=== PATIENT | male | born 1955 | race Caucasian/White ===

== ENCOUNTER → 2017-11-17 | Outpatient (CLI) | payer BC ==
--- NOTE | 2017-11-17 13:59 | RAD ---
EXAM: Chest, 2 views. HISTORY: Cough. COMPARISON: 07/30/2015 FINDINGS: Frontal and lateral views of the chest are obtained. There is no infiltrate, effusion or pneumothorax. The heart is normal in size. IMPRESSION: No acute pulmonary finding. Electronically signed by: Le Gastelum MD (11/17/2017 1:55 PM) [place] [id number]
== END | disposition home or self-care (01) ==
LOC: PMG 11:16
PROVIDERS: ATTEND Physician Assistant Medical
DX: R05 Cough (principal); R06.02 Shortness of breath
CPT/HCPCS: 71046

== ENCOUNTER 2019-04-13 16:51 | Emergency (ER) | payer BC ==
[~2019-04-13] VITALS: Ht 188 cm; Wt 91.1 kg
[2019-04-13 16:52] VITALS: BP 135/75
[2019-04-13] MEDS ORDERED: IPRATRPIUM/ALBUTEROL 0.5/2.5MG 3 ML NEBU. NEB ONE (17:30)
[2019-04-13] MEDS ORDERED: BENZ100C PO (17:34)
[2019-04-13] MEDS ORDERED: DOXY100C14 PO (17:34)
[2019-04-13] MEDS ORDERED: ALBU2.5V8 IH (17:34)
[2019-04-13] MEDS ORDERED: PRED50TA PO (17:34)
--- NOTE | 2019-04-13 17:35 | PHYS DOC ---
Past History Past Medical History: Diabetes, Hypertension Past Surgical History: No Surgical History Alcohol Use: None Drug Use: None Adult General Chief Complaint Chief Complaint: COUGH HPI HPI 63-year-old male presenting to the emergency department today with a cough. He has had an upper respiratory tract infection and a head cold for about 5 days. Today he was coughing consistently and had an episode of posttussis emesis. No hematemesis. He denies any fevers or chills. He denies any pain. Location lungs. Without alleviating factors. Review of systems is negative for chest pain headache difficulty breathing abdominal pain fevers or chills. All other review of systems negative. ED course: 63-year-old male presenting with sharp today with cough. He was given a nebulizer here in the emergency room along with a chest x-ray being taken. He is afebrile here with normal vital signs. He feels better after nebulizer. Chest x-ray shows infiltrate. We will give the patient prednisone and doxycycline Tessalon Perles and a nebulizer to go home with. Return precautions given. Current Medications Current Medications Current Medications Medications (Trade) Dose Ordered Sig/Jakob Start Time Stop Time Status Last Admin Dose Admin Albuterol/ Ipratropium (Duoneb) 3 ml 1X ONCE 04/13/19 17:15 04/13/19 17:16 UNV Allergies Allergies Allergies Coded Allergies Type Severity Reaction Last Updated Verified Penicillins Allergy Unknown 04/13/19 Yes Physical Exam Physical Exam Constitutional: Well developed, well nourished, no acute distress, non-toxic appearance. [] HENT: Normocephalic, atraumatic, bilateral external ears normal, oropharynx moist, no oral exudates, nose normal. [] Eyes: PERRLA, EOMI, conjunctiva normal, no discharge. [] Neck: Normal range of motion, no tenderness, supple, no stridor. [] Cardiovascular:Heart rate regular rhythm, no murmur [] Lungs & Thorax: Mild wheezing bilaterally. Normal expiratory phase. Not in respiratory distress. Normal work of breathing. Abdomen: Bowel sounds normal, soft, no tenderness, no masses, no pulsatile masses. [] Skin: Warm, dry, no erythema, no rash. [] Back: No tenderness, no CVA tenderness. [] Extremities: No tenderness, no cyanosis, no clubbing, ROM intact, no edema. [] Neurologic: Alert and oriented X 3, normal motor function, normal sensory function, no focal deficits noted. [] Psychologic: Affect normal, judgement normal, mood normal. [] Current Patient Data Vital Signs Vital Signs Date Time Temp Pulse Resp B/P (MAP) Pulse Ox O2 Delivery O2 Flow Rate FiO2 04/13/19 16:52 98.4 95 24 135/75 (95) 98 Room Air EKG EKG [] Radiology/Procedures Radiology/Procedures [] Course & Med Decision Making Course & Med Decision Making Pertinent Labs and Imaging studies reviewed. (See chart for details) [] Dragon Disclaimer Dragon Disclaimer This electronic medical record was generated, in whole or in part, using a voice recognition dictation system. Departure Departure: Impression: Primary Impression: Cough Additional Impressions: Bronchitis PNA (pneumonia) Disposition: HOME, SELF-CARE Condition: STABLE Referrals: MONTEZ COLEMAN (PCP) Patient Instructions: Cough, Adult Additional Instructions: Thank you for allowing us to participate in your care today. Return to the emergency department you have any new or worsening symptoms, or if you are concerned for any reason. Return to emergency department if you have any new or concerning symptoms including but not limited to fever, chills, nausea, vomiting, intractable pain, any new rashes, chest pain, shortness of air, uncontrolled bleeding, difficulty breathing, and/or vision loss. Follow up with your primary care physician within 1-2 days. Call your Primary Doctor tomorrow and inform them of your visit today. If you do not have a primary care provider we are happy to provide you with a list of our primary care providers contact information. This condition should be evaluated by your primary care physician and any recommended consulting services for continued management within 2 days after discharge. If at any time, you are having difficulty getting into your primary c are doctor or a specialist, return to the emergency department. Scripts Benzonatate (TESSALON PERLE) 100 Mg Capsule 1 CAP PO TID for cough, #21 CAP Prov: FRANDY SHARMA MD 04/13/19 Doxycycline Monohydrate (DOXYCYCLINE MONOHYDRATE) 100 Mg Capsule 1 CAP PO BID for cough, #20 CAP Prov: FRANDY SHARMA MD 04/13/19 Albuterol Sulfate (PROAIR HFA INHALER) 8.5 Gm Hfa.aer.ad 2 PUFF IH PRN Q4-6HRS PRN for wheezing for 21 Days, #1 INHALER 0 Refills Prov: FRANDY SHARMA MD 04/13/19 Prednisone (PREDNISONE) 50 Mg Tablet 1 TAB PO DAILY for cough, #5 TAB You received this medication in the emergency room today. You will starting your next dose tomorrow. Prov: FRANDY SHARMA MD 04/13/19 Problem Qualifiers FRANDY SHARMA MD Apr 13, 2019 17:35
--- NOTE | 2019-04-13 18:40 | RAD ---
CHEST PA LATERAL History: Cough Comparison: Two-view chest November 17, 2017. Findings: The cardiomediastinal silhouette is normal. Pulmonary vasculature is normal. Lungs are hyperexpanded. The lungs are clear. No pleural effusion or pneumothorax is seen. There is no acute bone abnormality. Degenerative endplate spurring of the thoracic spine. IMPRESSION: No acute cardiopulmonary process. COPD. Electronically signed by: Quang Toney MD (04/13/2019 6:37 PM) [id number]
== END 2019-04-13 18:18 | disposition home or self-care (01) ==
LOC: ER 16:51
DX: J18.9 Pneumonia, unspecified organism (principal); J40 Bronchitis, not specified as acute or chronic; E11.9 Type 2 diabetes mellitus without complications; I10 Essential (primary) hypertension; Z88.0 Allergy status to penicillin
CPT/HCPCS: 71046; 94640; 99284; J7620